=== PATIENT | female | born 1950 | race African-American/Black ===

== ENCOUNTER 2017-09-18 14:40 | Outpatient (CLI) ==
--- NOTE | 2017-09-18 15:21 | DI ---
Exam: Three x-rays of the right shoulder. Comparison: Two-view of the chest performed 01/07/2016. Reason for exam: Right shoulder pain. FINDINGS: No acute fracture or malalignment. The humeral head articulates to the bony glenoid. The clavicle is intact. The scapular Y-view appears grossly unremarkable. The right hemithorax appears unremarkable. Impression: No acute fracture or dislocation is seen in the right shoulder.
--- NOTE | 2017-09-18 15:22 | DI ---
Exam: Four x-rays of the right knee. Comparison: None available. Reason for exam: Right knee pain. FINDINGS: No acute fracture or dislocation. The joint spaces. There is tricompartmental arthrosis with medial joint space narrowing. No unexplained calcific soft tissue density or radiopaque retaine d foreign body. No large effusion. Impression: No acute fracture or malalignment in the right knee with moderate degenerative disease
== END 2017-09-18 14:41 | disposition home or self-care (01) ==
LOC: RAD 14:40
PROVIDERS: ATTEND Internal Medicine
DX: M25.561 Pain in right knee (principal); M25.511 Pain in right shoulder

== ENCOUNTER 2018-02-01 10:00 | Outpatient (RCR) ==
--- NOTE | 2018-01-26 15:29 | RS.OPPTEV2 ---
Date of Note: 01/25/18 Visit #: 1 Date of Evaluation: 01/25/18 Payer Source: MEDICARE Surgery Performed?: No Treatment Diagnosis: Low back pain, sciatica History of Condition/Mechanism of Injury:: pt reports that she has had long hx of low back pain and has been flared up lately due to working hard at her home and then sitting at [employer] with her brother. Prior Level of Function.....Patient was independent with: ADL's, Self Care, Caregiving, Ambulation/Mobility, Community Integration/Access Functional Limitations: ADL's (up and down stairs to do laundry), Reaching, Pushing, Pulling, Lifting, Carrying, Standing, Bending, Squatting, Ambulation, Community Access/Integration Current Subjective/complaints:: pt states that her pain is some what better since had taken steroids. Treatment Side (optional): N/A *Precautions: n/a Medical History Medical History: Arthritis, Cancer Medical History Comments:: Breast CA, Surgical History: Lumbar Spine, Cholecystectomy, Hysterectomy Surgical History Comments:: lumbar fusion 2008 Smoking Status: Never smoker Hx Home Medications: arthrotec, clarinex, letrozole, montelukast, omeprazole, pyridoxine, simvastatin, pentoxifylline, azelastine, lexapro, calcium, multivitamin, vit D, fish oil Patient's Goals: decrease pain and resume normal daily activities. Pain Assessment - Pain Description Pain Location: lumbar spine radiating into LLE Pain Description: Burning, Sharp, Aching Pain Description: 4-5/10 Worst Pain Intensity: 7 Functional Outcome Measure UE Functional Index: 13 (26%) - G Codes & Severity Modifier G Codes & Modifier: mobility current CJ. mobility goal CI Source of G Code score: oswestry scale Observation - Observation Inspection: pt with hamstring tightness L worse than R. Posture: Forward Head, Rounded Shoulders, Increased Thoracic Kyphosis, Decreased Lumbar Lordosis Handedness: Right Gait - Gait Pattern General Gait Pattern Observation: No Deviations/Normal Gait Comments: pt amb without AD with no LOB General Range of Motion: BUE WFL's. BLE WFL's Muscle Strength: BUE grossly 4+/5. LLE hip flex 4-/5, knee flex/ext 4/5, ankle df/PF 4/5. RLE hip flex 4+/5, knee flex/ext 4+/5, ankle DF/PF 5/5 - ROM Lumbar Flexion: Hand reach to Mid-Shins Sidebending to Left: Reach to Lateral Joint Line Sidebending to Right: Reach to Lateral Joint Line Lumbar Spine ROM Limitations: Soft Tissue Tightness, Muscle Weakness, Pain Comments: pt with pain with side bending to R, pain radiates into LLE. pt with decreased radicular pain with prone lying. - Special Tests PRAVEEN Test: Negative Left, Negative Right SLR Test: Negative Left, Negative Right Seated Dural Stretch Test: Negative Right, Positive Left Palpation Palpation Findings: Trigger Point Comments:: trigger points noted in L SI Sensation - Sensation Right Upper Extremity: Intact/Normal Left Upper Extremity: Intact/Normal Right Lower Extremity: Intact/Normal Left Lower Extremity: Impaired (n/t LLE) Balance - Sitting Balance Static Sitting Balance: Normal Dynamic Sitting Balance: Normal - Standing Balance Static Standing Balance: Normal Dynamic Standing Balance: Normal - Heat/Cryotherapy Treatment: Cryotherapy Comments:: lumbar area Interventions - Exercise/Activities/Manual Therapy Exercises/Activities: pt performed hamstring stretch, resisted hip flex, isometric hip add, and prone lying x 2 mins with decreased radicular symptoms with prone lying. Manual Therapy: NA HOME EXERCISE PROGRAM: pt given written HEP including: hamstring stretch, resisted hip flex, isometric hip add, prone lying. - Charges Timed Code Treatment Minutes: 50 Total Treatment Time: 62 Procedures billed for this date of service:: eval low, CP EVALUATION COMPLEXITY LEVEL EVALUATION COMPLEXITY LEVEL: HISTORY: Low (OA, breast CA, ), EXAM OF BODY SYSTEMS: Medium (pain, strength, balance), CLINICAL PRESENTATION: Low (stable), CLINICAL DECISION MAKING: Low Assessment Assessment: pt presents with low back pain radiating into LLE with decreased strength, and muscle tightness, with decreased lumbar ROM. 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 Goal to be met by: 03/08/18 Goal #4: pt with less than 26% impaired per oswestry scale Goal to be met by: 03/08/18 Plan - Treatment to be Provided Procedures: Therapeutic Exercises, Therapeutic Activity, Manual Therapy, Massage , Patient Education Modalities: Class IV Laser, Cryotherapy, Hot Packs - Treatment Plan Frequency: 2-3 X week Duration: 6 weeks ORDER # VISITS AND/OR THROUGH DATE: 03/08/18 - Treatment Code (1) Lumbar pain Code(s): M54.5 - LOW BACK PAIN (2) Muscle weakness (generalized) Code(s): M62.81 - MUSCLE WEAKNESS (GENERALIZED) (3) Sciatica Code(s): M54.30 - SCIATICA, UNSPECIFIED SIDE Qualifiers: Laterality: left Qualified Code(s): M54.32 - Sciatica, left side
--- NOTE | 2018-01-29 09:54 | RS.OPPTDN ---
Subjective Date of Note: 01/27/18 Visit #: 2 Date of Evaluation: 01/25/18 Payer Source: MEDICARE Treatment Diagnosis: Low back pain, sciatica Current Subjective/complaints:: Patient pleasant,reports the pain is in the lumbar and L hip .No L LE pain at this time. *Precautions: n/a Pain Assessment - Pain Description Pain Location: Lumbar and L hip. Pain Description: Dull, Aching Current Pain Intensity: 2-3 - Heat/Cryotherapy Treatment: Hot Pack (20 mins. to low back prior to exercises) Interventions - Exercise/Activities/Manual Therapy Exercises/Activities: 25 mins. ther. ex. of pelvic tilts,SKTC,DKTC,90/90 hamstring stretches , hooklying trunk rotation,piriformis stretches.HEP review for these exercises ,plus exercises given at evaluation by PT , including resisted hip flexion ,prone positioning,pillow squeeze for isometric hip adduction. Total minutes of Exercise: 25 Manual Therapy: NA Total minutes of Manual Therapy: 0 HOME EXERCISE PROGRAM: pt given written HEP including: hamstring stretch, resisted hip flex, isometric hip add, prone lying. - Charges Timed Code Treatment Minutes: 25 Total Treatment Time: 45 Procedures billed for this date of service:: hp,ex 2 Assessment: Patient tolerates exercises well,has report fo muscle cramps in the upper thighs with hip flexion at end ROM (doing SKTC).She has moderate hamstring tightness ,but responds well to stretches today.She has slight L hip / lumbar discomfort with trunk rotation in hooklying . Patient Education: Education of diagnosis, Body/Joint mechanics, Home Exercise Program, Home Safety, Activity Modification, Education of Plan of Care Patient demonstrates compliance with HEP?: Yes Short Term Goals Goal #1: pt independent with initial HEP Goal to be met by: 02/15/18 Progress towards Goal:: Progressing Goal #2: pt rate pain <4/10 with activity Goal to be met by: 02/15/18 Progress towards Goal:: Progressing Goal #3: pt with decreased hamstring tightness equal BLE Goal to be met by: 02/15/18 Progress towards Goal:: Progressing Goal #4: Increase strength LLE 4/5 Goal to be met by: 02/15/18 Fdc Goals Goal #1: pt demonstrate understanding of HEP to continue at home Goal to be met by: 03/08/18 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 Goal to be met by: 03/08/18 Goal #4: pt with less than 26% impaired per oswestry scale Goal to be met by: 03/08/18 Plan PLAN OF CARE EXPIRES ON:: 03/08/18 ORDER # VISITS AND/OR THROUGH DATE: 03/08/18 PLAN: Continue PT to reduce back pain ,improve lumbar flexibility.
--- NOTE | 2018-01-29 11:00 | RS.OPPTDN ---
Subjective Date of Note: 01/29/18 Visit #: 3 Date of Evaluation: 01/25/18 Payer Source: MEDICARE Treatment Diagnosis: Low back pain, sciatica Current Subjective/complaints:: Patient reports soreness today due to being busy at home ,cleanng out closets,etc.She has intermittet pain into the L hip. *Precautions: n/a Pain Assessment - Pain Description Pain Location: lumbar and L hip area Pain Description: Radiating, Aching Current Pain Intensity: 2-3 /10 Other Comments regarding Pain:: occasionally radiates into the l leg - Heat/Cryotherapy Treatment: Hot Pack (20 mins. prior to exercises) Interventions - Exercise/Activities/Manual Therapy Exercises/Activities: 25 mins. ther. ex. of pelvic tilts,SKTC,DKTC,90/90 hamstring stretches , hooklying trunk rotation,piriformis stretches.HEP review for these exercises ,plus exercises given at evaluation by PT , including resisted hip flexion ,prone positioning,pillow squeeze for isometric hip adduction. Total minutes of Exercise: 25 Manual Therapy: NA HOME EXERCISE PROGRAM: pt given written HEP including: hamstring stretch, resisted hip flex, isometric hip add, prone lying. Added SKTC,DKTC,piriformis stretch,standing trunk extension with copies given. - Charges Timed Code Treatment Minutes: 25 Total Treatment Time: 45 Procedures billed for this date of service:: hp,ex 2 Assessment: Patient progressing well ,has less intense pain ,mostly described as soreness.She has good return demo of HEP.No antalgic gait noted after PT session today. Patient Education: Education of diagnosis, Body/Joint mechanics, Home Exercise Program, Home Safety, Activity Modification, Education of Plan of Care Patient demonstrates compliance with HEP?: Yes Short Term Goals Goal #1: pt independent with initial HEP Goal to be met by: 02/15/18 Progress towards Goal:: Progressing Goal #2: pt rate pain <4/10 with activity Goal to be met by: 02/15/18 Progress towards Goal:: Progressing Goal #3: pt with decreased hamstring tightness equal BLE Goal to be met by: 02/15/18 Progress towards Goal:: Progressing Goal #4: Increase strength LLE 4/5 Goal to be met by: 02/15/18 Progress towards Goal:: Progressing General Labor Goals Goal #1: pt demonstrate understanding of HEP to continue at home Goal to be met by: 03/08/18 Progress towards goal: Progressing 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 Goal to be met by: 03/08/18 Goal #4: pt with less than 26% impaired per oswestry scale Goal to be met by: 03/08/18 Plan PLAN OF CARE EXPIRES ON:: 03/08/18 ORDER # VISITS AND/OR THROUGH DATE: 03/08/18 PLAN: Cont . PT to eliminate back pain ,educate patient for joint protection, body mechanics.
--- NOTE | 2018-02-01 11:18 | RS.OPPTDN ---
Subjective Date of Note: 02/01/18 Visit #: 4 Date of Evaluation: 01/25/18 Payer Source: MEDICARE Treatment Diagnosis: Low back pain, sciatica Current Subjective/complaints:: Patient reports mostly stiffness in the low back today,no pain currently. *Precautions: n/a Pain Assessment - Pain Description Pain Location: lumbar pain Pain Description: stiffness - Heat/Cryotherapy Treatment: Hot Pack (20 mins. prior to exercises) Interventions - Exercise/Activities/Manual Therapy Exercises/Activities: 35 mins. ther. ex. of pelvic tilts,SKTC,DKTC,90/90 hamstring stretches , hooklying trunk rotation,piriformis stretches.HEP review for these exercises ,added yellow theraband exercises of postural pullbacks in standing . Total minutes of Exercise: 35 Manual Therapy: NA Total minutes of Manual Therapy: 0 HOME EXERCISE PROGRAM: pt given written HEP including: hamstring stretch, resisted hip flex, isometric hip add, prone lying.SKTC,DKTC,piriformis stretch, standing trunk extension with copies given.Today we added yellow theraband exercises of postural pullbacks. - Charges Timed Code Treatment Minutes: 35 Total Treatment Time: 55 Procedures billed for this date of service:: hp,ex 2 Assessment: Patient progressing well,reports less L hip discomfort with stretches today.No antalgic gait noted today.She reports slight L lumbar discomfort after standing theraband exercises.Instructed to avoid heavy resistive activity .She has good safety awareness and her limitations with certain ADL's. Patient Education: Education of diagnosis, Body/Joint mechanics, Home Exercise Program, Home Safety, Activity Modification, Education of Plan of Care Patient demonstrates compliance with HEP?: Yes Short Term Goals Goal #1: pt independent with initial HEP Goal to be met by: 02/15/18 Progress towards Goal:: Partially Met Goal #2: pt rate pain <4/10 with activity Goal to be met by: 02/15/18 Progress towards Goal:: Partially Met Goal #3: pt with decreased hamstring tightness equal BLE Goal to be met by: 02/15/18 Progress towards Goal:: Partially Met Goal #4: Increase strength LLE 4/5 Goal to be met by: 02/15/18 Progress towards Goal:: Progressing Alf Goals Goal #1: pt demonstrate understanding of HEP to continue at home Goal to be met by: 03/08/18 Progress towards goal: Progressing Goal #2: 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 Goal to be met by: 03/08/18 Progress towards goal: Progressing Goal #4: pt with less than 26% impaired per oswestry scale Goal to be met by: 03/08/18 Plan PLAN OF CARE EXPIRES ON:: 03/08/18 ORDER # VISITS AND/OR THROUGH DATE: 03/08/18 PLAN: Continue skilled PT to eliminate LBP,return patient to PLOF.
== END 2018-02-01 23:59 ==
PROVIDERS: ATTEND Internal Medicine
DX: M54.42 Lumbago with sciatica, left side (principal)

== ENCOUNTER 2018-02-22 10:00 | Outpatient (RCR) ==
--- NOTE | 2018-02-05 11:08 | RS.OPPTDN ---
Subjective Date of Note: 02/05/18 Visit #: 5 Date of Evaluation: 01/25/18 Payer Source: MEDICARE Treatment Diagnosis: Low back pain, sciatica Current Subjective/complaints:: Reports going to aquatics exercise program recently.She feels the PT is helping her. *Precautions: n/a Pain Assessment - Pain Description Pain Location: lumbar Pain Description: minimal ,more on L side of low back Current Pain Intensity: not rated - Heat/Cryotherapy Treatment: Hot Pack (20 mins. prior to exercises) Interventions - Exercise/Activities/Manual Therapy Exercises/Activities: 30 mins. ther. ex. of pelvic tilts,SKTC,DKTC,90/90 hamstring stretches , hooklying trunk rotation,piriformis stretches.Patient did 10 reps of SLR on L with out back pain .HEP review for these exercises .Ended session with SI muscle energy tehnique of resisted knee extension in hooklying. Total minutes of Exercise: 30 Manual Therapy: NA Total minutes of Manual Therapy: 0 HOME EXERCISE PROGRAM: pt given written HEP including: hamstring stretch, resisted hip flex, isometric hip add, prone lying.SKTC,DKTC,piriformis stretch, standing trunk extension with copies given. - Charges Timed Code Treatment Minutes: 30 Total Treatment Time: 50 Procedures billed for this date of service:: hp,ex 2 Assessment: Progressing well toward all rehab goals,has equal hamstring extensibility today,has negative SLR test today on the L LE.She has good understanding of pain control if back pain elevates.She reports tolerating being on her feet for longer duration now. Patient Education: Education of diagnosis, Body/Joint mechanics, Home Exercise Program, Home Safety, Activity Modification, Education of Plan of Care Patient demonstrates compliance with HEP?: Yes Short Term Goals Goal #1: pt independent with initial HEP Goal to be met by: 02/15/18 Progress towards Goal:: Partially Met Goal #2: pt rate pain <4/10 with activity Goal to be met by: 02/15/18 Progress towards Goal:: Partially Met Goal #3: pt with decreased hamstring tightness equal BLE Goal to be met by: 02/15/18 Progress towards Goal:: Met Goal #4: Increase strength LLE 4/5 Goal to be met by: 02/15/18 Progress towards Goal:: Partially Met Flight Steward Goals Goal #1: pt demonstrate understanding of HEP to continue at home Goal to be met by: 03/08/18 Progress towards goal: Progressing Goal #2: 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 Goal to be met by: 03/08/18 Progress towards goal: Progressing Goal #4: pt with less than 26% impaired per oswestry scale Goal to be met by: 03/08/18 Plan PLAN OF CARE EXPIRES ON:: 03/08/18 ORDER # VISITS AND/OR THROUGH DATE: 03/08/18 PLAN: Cont. PT to eliminate back pain ,return to PLOF.
--- NOTE | 2018-02-09 11:10 | RS.OPPTDN ---
Subjective Date of Note: 02/09/18 Visit #: 6 Date of Evaluation: 01/25/18 Payer Source: MEDICARE Treatment Diagnosis: Low back pain, sciatica Current Subjective/complaints:: Reports feeling better,has occasional , "twinge " of pain in the back.She is very active , reports not trying to vacuum her home yet. *Precautions: n/a Pain Assessment - Pain Description Pain Description: Dull Pain Description: twinge of pain intermittently Current Pain Intensity: 1 - Heat/Cryotherapy Treatment: Hot Pack (20 mins. prior to exercises) Interventions - Exercise/Activities/Manual Therapy Exercises/Activities: 30 mins. instruction in alternate UE/LE seated on therapy ball,then standing ,then standing using therapy ball against abdomen while attempting UE/LE extension. R side-lying doing "clam shell " motion,then side lying L hip abduction. Total minutes of Exercise: 30 Manual Therapy: NA Total minutes of Manual Therapy: 0 HOME EXERCISE PROGRAM: pt given written HEP including: hamstring stretch, resisted hip flex, isometric hip add, prone lying.SKTC,DKTC,piriformis stretch, standing trunk extension with copies given. - Charges Timed Code Treatment Minutes: 30 Total Treatment Time: 50 Procedures billed for this date of service:: hp,ex 2 Assessment: Patient progressing well toward all goals ,as her intensity of back pain is lessening with daily activities.She has good understanding of HEP, better postural awareness,especially when fatigued.Her pain is not radiating into the L LE today.She has L LE hip abductor weakness noted with brief single leg stance,but understands the exercise to improve this. Patient Education: Body/Joint mechanics, Education of Plan of Care Patient demonstrates compliance with HEP?: Yes Short Term Goals Goal #1: pt independent with initial HEP Goal to be met by: 02/15/18 Progress towards Goal:: Met Goal #2: pt rate pain <4/10 with activity Goal to be met by: 02/15/18 Progress towards Goal:: Partially Met Goal #3: pt with decreased hamstring tightness equal BLE Goal to be met by: 02/15/18 Progress towards Goal:: Met Goal #4: Increase strength LLE 4/5 Goal to be met by: 02/15/18 Progress towards Goal:: Partially Met Long-Term Goals Goal #1: pt demonstrate understanding of HEP to continue at home Goal to be met by: 03/08/18 Progress towards goal: Partially Met Goal #2: 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 Goal to be met by: 03/08/18 Progress towards goal: Partially Met Goal #4: pt with less than 26% impaired per oswestry scale Goal to be met by: 03/08/18 Plan PLAN OF CARE EXPIRES ON:: 03/08/18 ORDER # VISITS AND/OR THROUGH DATE: 03/08/18 PLAN: Continue PT to decrease or eliminate back pain ,return to PLOF.
--- NOTE | 2018-02-12 11:18 | RS.OPPTDN ---
Subjective Date of Note: 02/12/18 Visit #: 7 Date of Evaluation: 01/25/18 Payer Source: MEDICARE Treatment Diagnosis: Low back pain, sciatica Current Subjective/complaints:: Patient reports the L mid back is sore today.She continues to be compliant to her exercise program ,and very active on a daily basis. *Precautions: n/a Pain Assessment - Pain Description Pain Location: lumbar and L mid back Pain Description: Dull Current Pain Intensity: not rated - Heat/Cryotherapy Treatment: Hot Pack (20 mins. prior to exercises) Interventions - Exercise/Activities/Manual Therapy Exercises/Activities: 30 mins. total,including SI muscle energy techniques fo resisted hip flexion ,combined with resisted knee extension in hooklying position.Isometric hip abd/add. ,gluteal sets,LE PNF to check L back pain .Gentle distraction at end of session. Total minutes of Exercise: 30 Manual Therapy: NA Total minutes of Manual Therapy: 0 HOME EXERCISE PROGRAM: pt given written HEP including: hamstring stretch, resisted hip flex, isometric hip add, prone lying.SKTC,DKTC,piriformis stretch, standing trunk extension with copies given. - Charges Timed Code Treatment Minutes: 30 Total Treatment Time: 50 Procedures billed for this date of service:: hp,ex 2 Assessment: Patient tolerates stretches well.She does reports dull ache in the L hip as she fatigues,was initially elevated on the L pelvic girdle ,but was symmetrical after muscle energy done. Patient Education: Body/Joint mechanics, Home Exercise Program, Home Safety, Activity Modification, Education of Plan of Care Patient demonstrates compliance with HEP?: Yes Short Term Goals Goal #1: pt independent with initial HEP Goal to be met by: 02/15/18 Progress towards Goal:: Met Goal #2: pt rate pain <4/10 with activity Goal to be met by: 02/15/18 Progress towards Goal:: Partially Met Goal #3: pt with decreased hamstring tightness equal BLE Goal to be met by: 02/15/18 Progress towards Goal:: Met Goal #4: Increase strength LLE 4/5 Goal to be met by: 02/15/18 Progress towards Goal:: Partially Met Station Attendant Goals Goal #1: pt demonstrate understanding of HEP to continue at home Goal to be met by: 03/08/18 Progress towards goal: Partially Met Goal #2: 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 Goal to be met by: 03/08/18 Progress towards goal: Partially Met Goal #4: pt with less than 26% impaired per oswestry scale Goal to be met by: 03/08/18 Plan PLAN OF CARE EXPIRES ON:: 03/08/18 ORDER # VISITS AND/OR THROUGH DATE: 03/08/18 PLAN: Cont PT to eliminate LBP,return to PLOF.
--- NOTE | 2018-02-17 11:16 | RS.OPPTDN ---
Subjective Date of Note: 02/17/18 Visit #: 8 Date of Evaluation: 01/25/18 Payer Source: MEDICARE Treatment Diagnosis: Low back pain, sciatica Current Subjective/complaints:: Reports doing well,has occasional 'twinge" in the L mid back ,today when getting out of her car. *Precautions: n/a Pain Assessment - Pain Description Pain Location: back Pain Description: intermittent Current Pain Intensity: 2-3 - Heat/Cryotherapy Treatment: Hot Pack (20 mins. prior to exercises) Interventions - Exercise/Activities/Manual Therapy Exercises/Activities: 30 mins. total,including SI muscle energy technique of resisted hip flexion , then isometrics for hip abd/adduction ,SKTC,DKTC,SLR test (-) ,LTR in hooklying ,AROM of alternating hip flexion x 15 reps.Ended session with bilateral piriformis stretches. Total minutes of Exercise: 30 Manual Therapy: NA Total minutes of Manual Therapy: 0 HOME EXERCISE PROGRAM: pt given written HEP including: hamstring stretch, resisted hip flex, isometric hip add, prone lying.SKTC,DKTC,piriformis stretch, standing trunk extension with copies given. - Charges Timed Code Treatment Minutes: 30 Total Treatment Time: 50 Procedures billed for this date of service:: hp,ex 2 Assessment: Progressing well toward all goasl.She has much improved awareness of body mechanics for more strenuous activities.She rports stretch discomfort at end range ,but no elevated back pain today with activities.She continues to be highly active and motivated.We discussed beginning D/C plan ,tenttively for next week due to good progress. 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 Goal to be met by: 03/08/18 Progress towards goal: Partially Met Goal #4: pt with less than 26% impaired per oswestry scale Goal to be met by: 03/08/18 (To be assessed next visit.) Plan PLAN OF CARE EXPIRES ON:: 03/08/18 ORDER # VISITS AND/OR THROUGH DATE: 03/08/18 PLAN: Continue PT to eliminate or reduce back pain ,return to highest LOF.
--- NOTE | 2018-02-22 11:24 | RS.OPPTDN ---
Subjective Date of Note: 02/22/18 Visit #: 9 Date of Evaluation: 01/25/18 Payer Source: MEDICARE Treatment Diagnosis: Low back pain, sciatica Current Subjective/complaints:: Patient pleased with her progress,reports feling much better.She is doing her HEP and is returning to [facility] [employer] exercise program twice a week.She agrees with D/C plan today. *Precautions: n/a Pain Assessment - Pain Description Pain Location: L lumbar / hip Pain Description: occasional twinge Current Pain Intensity: 0 Worst Pain Intensity: 2-3 Other Comments regarding Pain:: Reports her pain does not generally interfere with her daily plans . - Heat/Cryotherapy Treatment: Hot Pack (20 misn. prior to exercises) Interventions - Exercise/Activities/Manual Therapy Exercises/Activities: 35 mins. total,including pelvic tilts ,SI muscle energy technique of resisted hip flexion , then isometrics for hip abd/adduction ,SKTC, DKTC,LTR in hooklying ,90/90 hamstring stretches.Added abdominal crunch , ( given a copy ) Total minutes of Exercise: 35 Manual Therapy: NA Total minutes of Manual Therapy: 0 HOME EXERCISE PROGRAM: pt given written HEP including: hamstring stretch, resisted hip flex, isometric hip add, prone lying.SKTC,DKTC,piriformis stretch, standing trunk extension with copies given. - Charges Timed Code Treatment Minutes: 35 Total Treatment Time: 55 Procedures billed for this date of service:: hp,ex 2 Assessment: Partient progresed well,met STG's and LTG's.Her pain is now less intense,less frequent,and decreased duration when she does have pain.She has good return demo and understanding of HEP. 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 Goal to be met by: 03/08/18 Progress towards goal: Met Goal #4: pt with less than 26% impaired per oswestry scale Goal to be met by: 03/08/18 (22%) Progress towards goal: Met Plan PLAN OF CARE EXPIRES ON:: 03/08/18 ORDER # VISITS AND/OR THROUGH DATE: 03/08/18 PLAN: D/C.
--- NOTE | 2018-02-22 13:14 | RS.OPPTDC ---
Date of Discharge: 02/22/18 Date of Evaluation: 01/25/18 Number of Visits: 9 Treatment Diagnosis: Low back pain, sciatica Current Level of Function: pt presents with improved strength 4+ to 5-/5 strength, Lumbar and LE ROM WFL's. pt presents with good posture, normal gait pattern. Current Complaints/Gains: pt states she is pleased with her progress. She is planning on continuing water exercises 2 x per week. Functional Outcome Measure Oswestry LBP: 11 (22%) - G Codes & Severity Modifier G Codes & Modifier: mobility goal CI. mobility d/c CJ Source of G Code score: oswestry LBP Observation - Observation Posture: Forward Head, Rounded Shoulders, Increased Thoracic Kyphosis, Decreased Lumbar Lordosis General Range of Motion: lumbar and LE ROM WFL's Muscle Strength: 4+ to 5-/5 strength Interventions - Exercise/Activities/Manual Therapy Exercises/Activities: n/a Manual Therapy: NA HOME EXERCISE PROGRAM: pt given written HEP including: hamstring stretch, resisted hip flex, isometric hip add, prone lying.SKTC,DKTC,piriformis stretch, standing trunk extension with copies given. - Charges Timed Code Treatment Minutes: n/a Total Treatment Time: n/a Procedures billed for this date of service:: n/a Assessment Assessment: pt has met all goals. pt has made significant progress with amb, transfers as well as strength and ROM. 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 Goal to be met by: 03/08/18 Progress towards goal: Met Goal #4: pt with less than 26% impaired per oswestry scale Goal to be met by: 03/08/18 (22%) Progress towards goal: Met Plan Reason for Discharge:: All Goals Met
== END 2018-03-04 23:59 ==
PROVIDERS: ATTEND Internal Medicine
DX: M54.42 Lumbago with sciatica, left side (principal)

== ENCOUNTER 2018-04-27 13:56 | Outpatient (CLI) ==
--- NOTE | 2018-04-28 08:43 | CT ---
EXAM: CT lumbar spine without contrast HISTORY: Back pain COMPARISON: None TECHNIQUE: CT lumbar spine performed without intravenous contrast. Coronal and sagittal reformatted images obtained. FINDINGS: The patient status post posterior spinal fusion L4-L5-S1. Hardware appears intact. Inter body spacers L4-L5 and L5-S1. Multilevel marginal osteophyte formation. Severe intervertebral space narrowing at T11-T12, L2-L3, and L3-L4. Multilevel facet arthrosis. Trace retrolisthesis of L2 on L3 and L3 on L4. Sacroiliac joints intact with mild degenerative change. Colonic diverticulosis. S everal small right renal calculi measuring 1 - 2 mm. T11-T12: Posterior disc osteophyte complex and facet arthrosis causing moderate to severe bilateral neural foraminal narrowing. T12-L1: No central canal or neural foraminal narrowing. L1-L2: Posterior disc osteophyte complex causing very mild central canal narrowing. L2-L3: Posterior disc osteophyte complex and facet arthrosis causing mild to moderate central canal and severe bilateral neural foraminal narrowing. L3-L4: Posterior disc osteophyte complex and facet arthrosis causing moderate central canal and sever e bilateral neural foraminal narrowing. L4-L5: Postoperative changes. Central canal obscured secondary to streak artifact without definitiv e central canal or neural foraminal narrowing. L5-S1: Postoperative changes. Central canal obscured secondary to streak artifact without definitiv e central canal or neural foraminal narrowing. IMPRESSION: 1. Posterior spinal fusion L4-L5-S1. Hardware appears intact. No fracture. 2. Chronic discogenic degenerative disease and facet arthrosis. Please see segmental analysis, noti ng central canal and neural foraminal narrowing. Right nephrolithiasis.
== END 2018-04-27 13:57 | disposition home or self-care (01) ==
LOC: RAD 13:56
PROVIDERS: ATTEND Internal Medicine
DX: M54.9 Dorsalgia, unspecified (principal)

== ENCOUNTER 2018-07-01 14:00 | Outpatient (RCR) ==
--- NOTE | 2018-06-16 10:59 | RS.OPPTEV2 ---
Date of Note: 06/15/18 Visit #: 1 Date of Evaluation: 06/15/18 Payer Source: MEDICARE Surgery Performed?: No Treatment Diagnosis: Low back pain History of Condition/Mechanism of Injury:: Patient has had a history of low back pain. She had surgery to the lumbar spine in 2008. She had a flare up earlier this year and did well with therapy. She has had an aggrevation of her low back pain again recently, as well as left lower thoracic pain. States this increased pain may be from working around her house. Prior Level of Function.....Patient was independent with: ADL's, Self Care, Caregiving, Ambulation/Mobility, Community Integration/Access Functional Limitations: ADL's (up and down stairs to do laundry), Reaching, Pushing, Pulling, Lifting, Carrying, Standing, Bending, Squatting, Ambulation, Community Access/Integration Current Subjective/complaints:: Ms. Roach reports pain in the left low back, mid back, and into left abdomen. States her pain is worse with laying down. She denies any radiating pain into the LE's. States she has some numbness in her feet since her back surgery. States most of her pain has been on the left side. States she was initially having problems sleeping, but she is doing better now. She performs some stretching in the mornings before she gets out of bed. She has not been able to continue with her water aerobics classes because the pool is closed for repairs. Reports pain with lifting and with prolonged standing. Treatment Side (optional): N/A *Precautions: n/a Medical History Medical History: Arthritis, Cancer Medical History Comments:: Breast CA 2016 Surgical History: Lumbar Spine, Cholecystectomy, Hysterectomy Surgical History Comments:: lumbar fusion 2008 Smoking Status: Never smoker Hx Home Medications: arthrotec, clarinex, letrozole, montelukast, omeprazole, pyridoxine, simvastatin, pentoxifylline, azelastine, calcium, multivitamin, vit D, fish oil. She also has Hydrocodone, but has not taken it in a long time. Patient's Goals: Her goal is to get relief of back pain. Pain Assessment - Pain Description Pain Location: low back and left middle-low back Current Pain Intensity: not quantifed Worst Pain Intensity: not quantified Functional Outcome Measure Oswestry LBP: 30 - G Codes & Severity Modifier G Codes & Modifier: Mob current CJ. Mob goal CI Source of G Code score: Oswestry LBP scale Observation - Observation Posture: Forward Head, Rounded Shoulders, Decreased Lumbar Lordosis Gait - Gait Pattern Gait Comments: Patient ambulates with a slight flexed posture. She ambulates independently without an assistive device. - ROM Lumbar Flexion: Hand reach to patellae Sidebending to Left: Reach to Lateral Joint Line Sidebending to Right: Reach to Lateral Joint Line Comments: Patient demonstrates minimal flexion at the lumbar spine, most mobility is at the hips. Patient reports discomfort and "pulling" in the left mid back with right side bending. - Strength Comments: Trunk strength 4-/5. LE strength 4+/5. - Special Tests PRAVEEN Test: Negative Left, Negative Right SLR Test: Negative Left, Negative Right Seated Dural Stretch Test: Negative Left, Negative Right SI Joint Compression: Negative Palpation Comments:: Patient demonstrates moderate increased muscle tone along the left lower thoracic and lumbar paraspinals. She reports tenderness at the Left lumbosacral region and SI. Sensation - Sensation Comments: Patient reports numbness in the left foot and toes of the right foot. States she has had this since 2009 back surgery. All else of LE sensation is intact. Additional Comments: Additional Comments: SLR bilaterally 60+ degrees in supine. Interventions - Exercise/Activities/Manual Therapy Exercises/Activities: Patient instructed in lower trunk rotation and sidebending to stretch the muscles along the left side of the thoracic and lumbar spine. Manual Therapy: NA HOME EXERCISE PROGRAM: lower trunk rotation and sidebending to stretch the muscles along the left side - Charges Timed Code Treatment Minutes: 0 mins Total Treatment Time: 42 mins Procedures billed for this date of service:: EVAL Medium EVALUATION COMPLEXITY LEVEL EVALUATION COMPLEXITY LEVEL: HISTORY: Medium (Hx of back pain w/ lumbar fusion 2009, Breast Cancer), EXAM OF BODY SYSTEMS: Medium, CLINICAL PRESENTATION: Medium, CLINICAL DECISION MAKING: Medium Assessment Assessment: Patient presents to therapy with a diagnosis of Low back pain. She reports an aggrevation of pain in the low back and along the left side of the lower thoracic spine. She reports difficulty tolerating prolonged standing due to pain. She demonstrates notable muscle guarding along the left thoracolumbar region and tenderness in this region, as well as in the left lumbosacral and SI region. She demonstrates potential to benefit from stretching and progressed spinals stability exercises to reduce muscle tone and pain. Patient Education: Education of diagnosis, Body/Joint mechanics, Home Exercise Program, Activity Modification, Education of Plan of Care Rehab Potential: Good Short Term Goals Goal #1: Pt independent and compliant with HEP. Goal to be met by: 06/29/18 Goal #2: Muscle tone in left thoracolumbar region decreased to minimal. Goal to be met by: 06/29/18 Goal #3: Pt to report minimal tenderness at lumbosacral region. Goal to be met by: 06/29/18 Goal #4: . Usp Goals Goal #1: Pt knows HEP and to continue ex's to maintain functional level at D/C. Goal to be met by: 07/30/18 Goal #2: Score on Oswestry LBP scale improved to 19% or less impairment. Goal to be met by: 07/30/18 Goal #3: Pt able to stand as needed with only minimal back pain. Goal to be met by: 07/30/18 Goal #4: Pt able to perform household activities with minimal to no back pain. Goal to be met by: 07/30/18 Plan - Treatment to be Provided Procedures: Therapeutic Exercises, Therapeutic Activity, Manual Therapy, Patient Education Modalities: Cryotherapy, Hot Packs - Treatment Plan Frequency: 2 X week Duration: 6 weeks ORDER # VISITS AND/OR THROUGH DATE: 07/30/18 - Treatment Code (1) Low back pain Code(s): M54.5 - LOW BACK PAIN Qualifiers: Chronicity: unspecified Back pain laterality: unspecified Sciatica presence: unspecified whether sciatica present Qualified Code(s): M54.5 - Low back pain
--- NOTE | 2018-06-17 15:30 | RS.OPPTDN ---
Subjective Date of Note: 06/17/18 Visit #: 2 Date of Evaluation: 06/15/18 Payer Source: MEDICARE Treatment Diagnosis: Low back pain Current Subjective/complaints:: Patient reports the therapy always seems to help her.She is compliant to doing her exercises at home. *Precautions: n/a Pain Assessment - Pain Description Pain Location: L lumbar and L mid-back Pain Description: Dull, Aching Current Pain Intensity: 3 - Heat/Cryotherapy Treatment: Hot Pack (20 mins. prior to eercises) Interventions - Exercise/Activities/Manual Therapy Exercises/Activities: 30 mins. ,SKTC,DKTC,piriformis stretches,LTR ,side- bending to R in standing.Also instructed in R sidelying with pillow or towel roll under the trunk to assist with stretch of L side of trunk. Total minutes of Exercise: 30 Manual Therapy: NA Total minutes of Manual Therapy: 0 HOME EXERCISE PROGRAM: lower trunk rotation and sidebending to stretch the muscles along the left side - Charges Timed Code Treatment Minutes: 30 Total Treatment Time: 50 Procedures billed for this date of service:: hp,ex 2 Assessment: Patient has increased discomfort in the L mid-back after standing and side-bending to the R ,but no sharp pain .She has good hamstring extensibility. In static standing ,she has trunk to L,corrects with tactile and verbal cues given. Patient Education: Education of diagnosis, Body/Joint mechanics, Home Exercise Program, Home Safety, Activity Modification, Education of Plan of Care Patient demonstrates compliance with HEP?: Yes Short Term Goals Goal #1: Pt independent and compliant with HEP. Goal to be met by: 06/29/18 Progress towards Goal:: Progressing Goal #2: Muscle tone in left thoracolumbar region decreased to minimal. Goal to be met by: 06/29/18 Goal #3: Pt to report minimal tenderness at lumbosacral region. Goal to be met by: 06/29/18 Goal #4: . Detention Goals Goal #1: Pt knows HEP and to continue ex's to maintain functional level at D/C. Goal to be met by: 07/30/18 Progress towards goal: Progressing Goal #2: Score on Oswestry LBP scale improved to 19% or less impairment. Goal to be met by: 07/30/18 Goal #3: Pt able to stand as needed with only minimal back pain. Goal to be met by: 07/30/18 Goal #4: Pt able to perform household activities with minimal to no back pain. Goal to be met by: 07/30/18 Plan PLAN OF CARE EXPIRES ON:: 07/30/18 ORDER # VISITS AND/OR THROUGH DATE: 07/30/18 PLAN: Continue PT to eliminate /reduce back pain ,instruct patient in postural awareness,utilizing stretches /strengthening.
--- NOTE | 2018-06-21 15:29 | RS.OPPTDN ---
Subjective Date of Note: 06/21/18 Visit #: 3 Date of Evaluation: 06/15/18 Payer Source: MEDICARE Treatment Diagnosis: Low back pain Current Subjective/complaints:: Patient reports minimal pain today,has tried sleeping on the R side with a small pillowunder the trunk ,feels this is helping. *Precautions: n/a Pain Assessment - Pain Description Pain Location: lumbar Pain Description: Dull Current Pain Intensity: 1 - Heat/Cryotherapy Treatment: Hot Pack (20 mins. prior to exercises) Interventions - Exercise/Activities/Manual Therapy Exercises/Activities: 30 mins. ,SKTC,DKTC,piriformis stretches,LTR ,SI muscle energy ,side-bending to R in sitting.Seated postural exercise of trunk extension.HEP review Total minutes of Exercise: 30 Manual Therapy: NA HOME EXERCISE PROGRAM: lower trunk rotation and sidebending to stretch the muscles along the left side - Charges Timed Code Treatment Minutes: 30 Total Treatment Time: 50 Procedures billed for this date of service:: hp,ex 2 Assessment: Patient reports mild cramping in the L mid back after exercises today,but no sharp pain.She continues to be tighter in the L aspect of her trunk ,as compared to the R, but this is progressing.She reports increased tightness on L also,when doing LTR to the R . Patient Education: Education of diagnosis, Body/Joint mechanics, Home Exercise Program, Home Safety, Activity Modification, Education of Plan of Care Patient demonstrates compliance with HEP?: Yes Short Term Goals Goal #1: Pt independent and compliant with HEP. Goal to be met by: 06/29/18 Progress towards Goal:: Progressing Goal #2: Muscle tone in left thoracolumbar region decreased to minimal. Goal to be met by: 06/29/18 Progress towards Goal:: Progressing Goal #3: Pt to report minimal tenderness at lumbosacral region. 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 Goal to be met by: 07/30/18 Progress towards goal: Progressing Goal #2: Score on Oswestry LBP scale improved to 19% or less impairment. Goal to be met by: 07/30/18 Goal #3: Pt able to stand as needed with only minimal back pain. Goal to be met by: 07/30/18 Progress towards goal: Progressing Goal #4: Pt able to perform household activities with minimal to no back pain. Goal to be met by: 07/30/18 Plan PLAN OF CARE EXPIRES ON:: 07/30/18 ORDER # VISITS AND/OR THROUGH DATE: 07/30/18 PLAN: Continue PT to eliminate back pain ,educate patient for core strengthening.
--- NOTE | 2018-06-23 15:11 | RS.OPPTDN ---
Subjective Date of Note: 06/23/18 Visit #: 4 Date of Evaluation: 06/15/18 Payer Source: MEDICARE Treatment Diagnosis: Low back pain Current Subjective/complaints:: Patient reports increaed aching in her back today,possibly due to rainy weather in the area. *Precautions: n/a Pain Assessment - Pain Description Pain Location: mid-back and lumbar Pain Description: Dull, Throbbing, Aching Current Pain Intensity: 4 - Heat/Cryotherapy Treatment: Hot Pack (20 mins. prior to exercises) Interventions - Exercise/Activities/Manual Therapy Exercises/Activities: 30 mins. ,SKTC,DKTC,R piriformis stretches,LTR ,side- bending to R in sitting.Standing exercise of trunk extension.. Total minutes of Exercise: 30 Manual Therapy: NA HOME EXERCISE PROGRAM: lower trunk rotation and sidebending to stretch the muscles along the left side - Charges Timed Code Treatment Minutes: 30 Total Treatment Time: 50 Procedures billed for this date of service:: hp,ex 2 Assessment: Patient reports the pain is reduced when supine ,but returns with walking after session ,but less intense.She has imcreased tightness in the ZR piriformis today,with sciatica present.She can benefit from continued stretches, modalities ,and also utilize soft tisue mobs. if needed. Patient Education: Education of diagnosis, Body/Joint mechanics, Home Exercise Program, Home Safety, Activity Modification, Education of Plan of Care Patient demonstrates compliance with HEP?: Yes Short Term Goals Goal #1: Pt independent and compliant with HEP. Goal to be met by: 06/29/18 Progress towards Goal:: Progressing Goal #2: Muscle tone in left thoracolumbar region decreased to minimal. Goal to be met by: 06/29/18 (increased guarding today) Progress towards Goal:: Regressing Goal #3: Pt to report minimal tenderness at lumbosacral region. Goal to be met by: 06/29/18 Progress towards Goal:: Progressing Goal #4: . Client Support Representative Goals Goal #1: Pt knows HEP and to continue ex's to maintain functional level at D/C. Goal to be met by: 07/30/18 Progress towards goal: Progressing Goal #2: Score on Oswestry LBP scale improved to 19% or less impairment. Goal to be met by: 07/30/18 Goal #3: Pt able to stand as needed with only minimal back pain. Goal to be met by: 07/30/18 Progress towards goal: Progressing Goal #4: Pt able to perform household activities with minimal to no back pain. Goal to be met by: 07/30/18 (elevated pain as this day progresses) Progress towards goal: Regressing Plan PLAN OF CARE EXPIRES ON:: 07/30/18 ORDER # VISITS AND/OR THROUGH DATE: 07/30/18 PLAN: Cont. PT to eliminate back pain , return to PLOF.
--- NOTE | 2018-06-28 15:04 | RS.OPPTDN ---
Subjective Date of Note: 06/28/18 Visit #: 5 Date of Evaluation: 06/15/18 Payer Source: MEDICARE Treatment Diagnosis: Low back pain Current Subjective/complaints:: Patient reports the back feels better today, able to do household tasks with less discomfort in the back. *Precautions: n/a Pain Assessment - Pain Description Pain Location: lumbar and L mid - back Pain Description: Dull Current Pain Intensity: not rated - Heat/Cryotherapy Treatment: Hot Pack (20 mins. prior to exercises) Interventions - Exercise/Activities/Manual Therapy Exercises/Activities: 30 mins. ,SKTC,DKTC, piriformis stretches,LTR ,side- bending to R sitting on therapy ball ,pelvic rocking motion on therapy ball.HEP review. Total minutes of Exercise: 30 Manual Therapy: NA Total minutes of Manual Therapy: 0 HOME EXERCISE PROGRAM: lower trunk rotation and sidebending to stretch the muscles along the left side - Charges Timed Code Treatment Minutes: 30 Total Treatment Time: 50 Procedures billed for this date of service:: hp,ex 2 Assessment: Patient has less pain doing ADL's at home,was able to vacuum without elevated pain today.The L mid-back pain is also lessening with side - bending to the R . Patient Education: Body/Joint mechanics, Home Exercise Program, Home Safety, Activity Modification, Education of Plan of Care Patient demonstrates compliance with HEP?: Yes Short Term Goals Goal #1: Pt independent and compliant with HEP. Goal to be met by: 06/29/18 Progress towards Goal:: Progressing Goal #2: Muscle tone in left thoracolumbar region decreased to minimal. Goal to be met by: 06/29/18 (increased guarding today) Progress towards Goal:: Progressing Goal #3: Pt to report minimal tenderness at lumbosacral region. Goal to be met by: 06/29/18 Progress towards Goal:: Partially Met Goal #4: . Intermediate Goals Goal #1: Pt knows HEP and to continue ex's to maintain functional level at D/C. Goal to be met by: 07/30/18 Progress towards goal: Progressing Goal #2: Score on Oswestry LBP scale improved to 19% or less impairment. Goal to be met by: 07/30/18 Goal #3: Pt able to stand as needed with only minimal back pain. Goal to be met by: 07/30/18 Progress towards goal: Progressing Goal #4: Pt able to perform household activities with minimal to no back pain. Goal to be met by: 07/30/18 Progress towards goal: Progressing Plan PLAN OF CARE EXPIRES ON:: 07/30/18 ORDER # VISITS AND/OR THROUGH DATE: 07/30/18 PLAN: Con tinue PT to strnegthen the core reduce /eliminate LBP.
--- NOTE | 2018-07-01 15:12 | RS.OPPTDN ---
Subjective Date of Note: 07/01/18 Visit #: 6 Date of Evaluation: 06/15/18 Payer Source: MEDICARE Treatment Diagnosis: Low back pain Current Subjective/complaints:: Reports having a good day today,feels the therapy is helping.Her pain is less than yesterday,has been doing some re- modelng at her home. *Precautions: n/a Pain Assessment - Pain Description Pain Location: low back - Heat/Cryotherapy Treatment: Hot Pack (20 mins. prior to exercises) Interventions - Exercise/Activities/Manual Therapy Exercises/Activities: 30 mins. ,SKTC,DKTC, piriformis stretches,LTR ,supine stretches to the L trunk by placing the LE's to the R of midline.Seated yellow theraband exercises of postural pullbacks at 2 different angles. Total minutes of Exercise: 30 Manual Therapy: NA Total minutes of Manual Therapy: 0 HOME EXERCISE PROGRAM: lower trunk rotation and sidebending to stretch the muscles along the left side - Charges Timed Code Treatment Minutes: 30 Total Treatment Time: 50 Procedures billed for this date of service:: hp,ex 2 Assessment: Patient reports less intensity,and less frequency of back pain with doing ADL's.She reports the pain is localizing to the lumbar region,not as intense in the L mid back. Patient Education: Education of diagnosis, Body/Joint mechanics, Home Exercise Program, Home Safety, Activity Modification, Education of Plan of Care Patient demonstrates compliance with HEP?: Yes Short Term Goals Goal #1: Pt independent and compliant with HEP. Goal to be met by: 06/29/18 Progress towards Goal:: Partially Met Goal #2: Muscle tone in left thoracolumbar region decreased to minimal. Goal to be met by: 06/29/18 (increased guarding today) Progress towards Goal:: Partially Met Goal #3: Pt to report minimal tenderness at lumbosacral region. Goal to be met by: 06/29/18 Progress towards Goal:: Partially Met Goal #4: . Care Home Goals Goal #1: Pt knows HEP and to continue ex's to maintain functional level at D/C. Goal to be met by: 07/30/18 Progress towards goal: Progressing Goal #2: Score on Oswestry LBP scale improved to 19% or less impairment. Goal to be met by: 07/30/18 Goal #3: Pt able to stand as needed with only minimal back pain. Goal to be met by: 07/30/18 Progress towards goal: Progressing Goal #4: Pt able to perform household activities with minimal to no back pain. Goal to be met by: 07/30/18 Progress towards goal: Progressing Plan PLAN OF CARE EXPIRES ON:: 07/30/18 ORDER # VISITS AND/OR THROUGH DATE: 07/30/18 PLAN: Continue PT to eliminate back pain ,return to PLOF,that being pain free with ADL's.
== END 2018-07-04 23:59 ==
DX: M54.5 Low back pain (principal)

== ENCOUNTER 2018-07-19 14:00 | Outpatient (RCR) ==
--- NOTE | 2018-07-05 15:27 | RS.OPPTDN ---
Subjective Date of Note: 07/05/18 Visit #: 7 Date of Evaluation: 06/15/18 Payer Source: MEDICARE Treatment Diagnosis: Low back pain Current Subjective/complaints:: Patient reports increased muscle soreness from household tasks,but having a good day today. *Precautions: n/a Pain Assessment - Pain Description Pain Location: lumbar Pain Description: Dull, Acute Current Pain Intensity: 2/1- Worst Pain Intensity: 3-4 with activity - Heat/Cryotherapy Treatment: Hot Pack (20 mins. after exercises today) Interventions - Exercise/Activities/Manual Therapy Exercises/Activities: 35 mins. core strengthening ,doing using multi gym for postural pullbacks at different angles,then alternating UE/LE flexion while seated on therapy ball.Also did doorway stretches,standing trunk rotation,side bending to the R . Total minutes of Exercise: 35 Manual Therapy: NA Total minutes of Manual Therapy: 0 HOME EXERCISE PROGRAM: lower trunk rotation and sidebending to stretch the muscles along the left side - Charges Timed Code Treatment Minutes: 35 Total Treatment Time: 55 Procedures billed for this date of service:: ex 2,hp Assessment: Patient has improved trunk rotation and sidebending ,with stretch discomfort only,no pain present.She has increased awareness of her standing posture.She is compliant to HEP .We discussed the focus of her remaining sessions will be more on strengthening ,as she has good flexibility. Patient Education: Body/Joint mechanics, Activity Modification, Education of Plan of Care Patient demonstrates compliance with HEP?: Yes Short Term Goals Goal #1: Pt independent and compliant with HEP. Goal to be met by: 06/29/18 Progress towards Goal:: Partially Met Goal #2: Muscle tone in left thoracolumbar region decreased to minimal. Goal to be met by: 06/29/18 Progress towards Goal:: Met Goal #3: Pt to report minimal tenderness at lumbosacral region. Goal to be met by: 06/29/18 Progress towards Goal:: Partially Met Goal #4: . Shelter Goals Goal #1: Pt knows HEP and to continue ex's to maintain functional level at D/C. Goal to be met by: 07/30/18 Progress towards goal: Partially Met Goal #2: Score on Oswestry LBP scale improved to 19% or less impairment. Goal to be met by: 07/30/18 Progress towards goal: Progressing Goal #3: Pt able to stand as needed with only minimal back pain. Goal to be met by: 07/30/18 Progress towards goal: Partially Met Goal #4: Pt able to perform household activities with minimal to no back pain. Goal to be met by: 07/30/18 Progress towards goal: Partially Met Plan PLAN OF CARE EXPIRES ON:: 07/30/18 ORDER # VISITS AND/OR THROUGH DATE: 07/30/18 PLAN: Continue PT to increase strength in the trunk extensors ,reduce/eliminate back pain .
--- NOTE | 2018-07-08 15:14 | RS.OPPTDN ---
Subjective Date of Note: 07/08/18 Visit #: 8 Date of Evaluation: 06/15/18 Payer Source: MEDICARE Treatment Diagnosis: Low back pain Current Subjective/complaints:: Patient reports she feels better overall,but today the L mid back is bothering her again. *Precautions: n/a Pain Assessment - Pain Description Pain Location: mid back Pain Description: Dull, Aching, Chronic Pain Description: muscle soreness Current Pain Intensity: 2 - Heat/Cryotherapy Treatment: Hot Pack (20 mins. prior to exercises) Interventions - Exercise/Activities/Manual Therapy Exercises/Activities: 25 mins. total,including supine SLR's each LE to see if this elicits pain ,then progressed to green theraband exercises in standing for postural pullbacks at different heights,then trunk rotation to L and R with green theraband resistance. Total minutes of Exercise: 25 Manual Therapy: NA Total minutes of Manual Therapy: 0 HOME EXERCISE PROGRAM: lower trunk rotation and sidebending to stretch the muscles along the left side - Charges Timed Code Treatment Minutes: 25 Total Treatment Time: 45 Procedures billed for this date of service:: hp,ex 2 Assessment: Patient has improved core strength,less intense back pain , described now as soreness with activity.She does understand the focus of her exercises to be on strengthening ,because she has good flexibility.We aslo discussed to do all exercises in pain free ROM. Patient Education: Education of diagnosis, Body/Joint mechanics, Home Exercise Program, Home Safety, Activity Modification, Education of Plan of Care Patient demonstrates compliance with HEP?: Yes Short Term Goals Goal #1: Pt independent and compliant with HEP. Goal to be met by: 06/29/18 Progress towards Goal:: Partially Met Goal #2: Muscle tone in left thoracolumbar region decreased to minimal. Goal to be met by: 06/29/18 Progress towards Goal:: Met Goal #3: Pt to report minimal tenderness at lumbosacral region. 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 Goal to be met by: 07/30/18 Progress towards goal: Partially Met Goal #2: Score on Oswestry LBP scale improved to 19% or less impairment. Goal to be met by: 07/30/18 Progress towards goal: Progressing Goal #3: Pt able to stand as needed with only minimal back pain. Goal to be met by: 07/30/18 Progress towards goal: Partially Met Goal #4: Pt able to perform household activities with minimal to no back pain. Goal to be met by: 07/30/18 Progress towards goal: Partially Met Plan PLAN OF CARE EXPIRES ON:: 07/30/18 ORDER # VISITS AND/OR THROUGH DATE: 07/30/18 PLAN: Continue PT to eliminate back pain ,strengthen the core to decrease risk of future injuries.
--- NOTE | 2018-07-19 14:42 | RS.CSNOTE ---
PT Case Note Date of Note: 07/19/18 Title of document: Patient status. Note: Patient enters clinic ,reports she is doing very well .She is independent with ADL's ,and has good understanding of body mechanics and HEP.Patient has met rehab goals and has a 10 % deficit per Oswestry Low Back Assessment. Number of visits approved by Insurance: NA Expiration date of current Insurance Approval:: NA
--- NOTE | 2018-07-20 13:49 | RS.OPPTDC ---
Date of Discharge: 07/08/18 Date of Evaluation: 06/15/18 Treatment Diagnosis: Low back pain Current Complaints/Gains: Ms. Roach states she is pleased with her progress. Reports less intensity and frequency of low back pain. Functional Outcome Measure Oswestry LBP: 5 (10) - G Codes & Severity Modifier G Codes & Modifier: Mob goal CI. Mob D/C CI Source of G Code score: Oswestry LBP Interventions - Exercise/Activities/Manual Therapy Exercises/Activities: nA Manual Therapy: NA HOME EXERCISE PROGRAM: lower trunk rotation and sidebending to stretch the muscles along the left side - Charges Timed Code Treatment Minutes: NA Total Treatment Time: NA Procedures billed for this date of service:: NA Assessment Assessment: Patient has met all goals. Demonstrates no further need for skilled therapy. Reports significantly less LBP and improved function. Short Term Goals Goal #1: Pt independent and compliant with HEP. Goal to be met by: 06/29/18 Progress towards Goal:: Met Goal #2: Muscle tone in left thoracolumbar region decreased to minimal. Goal to be met by: 06/29/18 Progress towards Goal:: Met Goal #3: Pt to report minimal tenderness at lumbosacral region. Goal to be met by: 06/29/18 Progress towards Goal:: Met Goal #4: . Ceo [employer] Goals Goal #1: Pt knows HEP and to continue ex's to maintain functional level at D/C. Goal to be met by: 07/30/18 Progress towards goal: Met Goal #2: Score on Oswestry LBP scale improved to 19% or less impairment. Goal to be met by: 07/30/18 Progress towards goal: Met Goal #3: Pt able to stand as needed with only minimal back pain. Goal to be met by: 07/30/18 Progress towards goal: Met Goal #4: Pt able to perform household activities with minimal to no back pain. Goal to be met by: 07/30/18 Progress towards goal: Partially Met Plan Reason for Discharge:: No Further Skilled Therapy Indicated
== END 2018-08-04 23:59 ==
DX: M54.5 Low back pain (principal)

== ENCOUNTER 2018-07-29 11:55 | Outpatient (CLI) ==
--- NOTE | 2018-07-29 12:20 | DI ---
EXAM: PA and lateral views of the chest HISTORY: Cough. COMPARISON: Chest x-ray 01/07/2016 and 03/23/2008 FINDINGS: The cardiomediastinal silhouette is normal. There is no pneumothorax or pleural effusion. There is no consolidation, nodule or mass. The osseous structures are stable. Surgical clips are n oted in the left chest IMPRESSION: No acute cardiopulmonary process
== END 2018-07-29 11:56 | disposition home or self-care (01) ==
LOC: RAD 11:55
PROVIDERS: ATTEND Internal Medicine
DX: R05 Cough (principal)

== ENCOUNTER 2018-12-30 13:00 | Outpatient (RCR) ==
--- NOTE | 2018-12-20 08:06 | RS.OPPTEV2 ---
Date of Note: 12/17/18 Visit #: 1 Number of visits approved by Insurance: NA Date of Evaluation: 12/17/18 Payer Source: MEDICARE Treatment Diagnosis: Right shoulder pain History of Condition/Mechanism of Injury:: Ms. Roach reports right shoulder pain began approximately May of 2018, without known injury. She received a Cortisone injection around July, which she states helped significantly. She just had another injection last week. It is helping, but not like the first injection did. Prior Level of Function.....Patient was independent with: ADL's, Self Care, Caregiving, Ambulation/Mobility, Community Integration/Access Functional Limitations: Sleep, ADL's, Reaching, Pushing, Pulling, Lifting Current Subjective/complaints:: Ms. Roach reports right shoulder pain. States she has difficulty sleeping because she usually sleeps on the right shoulder, but she is unable to due to pain. She also reports pain with reaching across her body or above shoulder height. She denies tingling or numbness in the right UE. She reports discomfort in the right upper traps and scapula. She attends water aerobics twice a week and reports it causes her no pain. She has tried to rest the arm to see if that decreases her pain, which it has. She is right hand dominant and reports having to do a lot of reaching at home because of her height. Treatment Side (optional): Right *Precautions: n/a Medical History Medical History: Arthritis, Cancer Medical History Comments:: Breast CA 2016 Surgical History: Lumbar Spine, Cholecystectomy, Hysterectomy Surgical History Comments:: lumbar fusion 2008, Smoking Status: Never smoker Diagnostic Testing/Imaging:: MRI verified incomplete rotator cuff tear per office visit note. Hx Home Medications: multivitamin, calcium, clarinex, escitalopram,letrozole, montelukast,fish oil, omeprazole, pentoxifylline,simvastatin,vitamin E, arthrotec Patient's Goals: Her goal is to get relief of right shoulder pain. Pain Assessment - Pain Description Pain Location: right shoulder joint Current Pain Intensity: 2/10 Worst Pain Intensity: 7/10 Functional Outcome Measure UE Functional Index: 68 (68/80=15% impairment) - G Codes & Severity Modifier G Codes & Modifier: NA Source of G Code score: NA Observation - Observation Posture: Forward Head, Rounded Shoulders Handedness: Right - Left Shoulder ROM Comments: Left UE AROM is WFL's throughout. - Right Shoulder ROM Comments: Right shoulder AROM and PROM is WFL's. Reports pain with AROM at shoulder height with flexion and abduction. Reports pain at end range with horizontal adduction. Displays painful arc with abduction. - Left Shoulder Strength Left Shoulder Flexion: 4+ Good + Left Shoulder Extension: 4+ Good + Left Shoulder Abduction: 4+ Good + Left Shoulder Adduction: 4+ Good + Left Shoulder External Rotation: 4+ Good + Left Shoulder Internal Rotation: 4+ Good + - Right Shoulder Strength Right Shoulder Flexion: 4 Good Right Shoulder Extension: 4+ Good + Right Shoulder Abduction: 4- Good- Right Shoulder Adduction: 4+ Good + Right Shoulder External Rotation: 4 Good Right Shoulder Internal Rotation: 4 Good - Special Tests Shoulder Empty Can (Supraspinatus) Test: Positive Right Shoulder Speed's Sign Test: Negative Right Shoulder Drop Arm Test: Negative Right Shoulder Fraire-Sergey Impingement Test: Positive Right Kiln Placer Strength Left Hand Kiln Placer Strength: 40 lbs. Right Hand Kiln Placer Strength: 22 lbs. Dynamometer Testing Position: 2nd Position Palpation Comments:: Patient reports mild tenderness at the insertion of the supraspinatus tendon. Also reports tenderness and demonstrates increased muscle tone along the medial border of the right scapula. Right upper traps also demonstrate moderate increased tone. Sensation - Sensation Right Upper Extremity: Intact/Normal Left Upper Extremity: Intact/Normal - Treatment Modality: Ultrasound Parameters/Method Applied: 1.5 w/cm2 continuous X 10 mins to right GH joint and right upper traps Patient Position: Sitting - Heat/Cryotherapy Treatment: Hot Pack (X 10 mins prior to US to right shoulder) Interventions - Exercise/Activities/Manual Therapy Exercises/Activities: Patient instructed in HEP of pendulum ex, scapular retraction, and AAROM into flexion and abduction in pain-free range. Total minutes of Exercise: X 7 mins Manual Therapy: NA HOME EXERCISE PROGRAM: pendulum ex, scapular retraction, and AAROM into flexion and abduction in pain-free range. - Charges Timed Code Treatment Minutes: 17 mins Total Treatment Time: 49 mins Procedures billed for this date of service:: MAIRA Rendon, EVALUATION COMPLEXITY LEVEL EVALUATION COMPLEXITY LEVEL: HISTORY: Medium (Hx Back sx, Past Breast Ca), EXAM OF BODY SYSTEMS: Low (right shoulder ROM, MS, pain, palpation), CLINICAL PRESENTATION: Low (stable symptoms of RTC involvement), CLINICAL DECISION MAKING : Low Assessment Assessment: Ms. Roach presents to therapy with a diagnosis of right shoulder pain. She reports pain with laying on the right shoulder and with any reaching across her body or to shoulder height. She exhibits symptoms of involvement of Supraspinatus tendon. She presents with good potential to benefit from modalities and exercises to reduce her pain with right shoulder ROM. Patient Education: Education of diagnosis, Body/Joint mechanics, Home Exercise Program, Activity Modification, Education of Plan of Care Rehab Potential: Good Short Term Goals Goal #1: Pt independent and compliant with HEP. Goal to be met by: 12/31/18 Goal #2: Pt to report no tenderness to right shoulder Goal to be met by: 12/31/18 Goal #3: Pt to demo good postural awareness. Goal to be met by: 12/31/18 Goal #4: . Manager Strategic Sourcing Goals Goal #1: Pt knows HEP and to continue ex's to maintain functional level at D/C. Goal to be met by: 01/31/19 Goal #2: Score on UE functional scale improved to 74/80. Goal to be met by: 01/31/19 Goal #3: Pt to perform all ADL's and reaching without right shoulder pain. Goal to be met by: 01/31/19 Goal #4: Pt able to sleep without interruption from right shoulder pain. Goal to be met by: 01/31/19 Plan - Treatment to be Provided Procedures: Therapeutic Exercises, Therapeutic Activity, Manual Therapy, Patient Education Modalities: Ultrasound/Phonophoresis, Cryotherapy, Hot Packs - Treatment Plan Frequency: 2-3 X week Duration: 6 weeks Dates of Manager Strategic Sourcing Goals: 01/31/19 Expiration date of current Insurance Approval:: NA - Treatment Code (1) Shoulder pain Code(s): M25.519 - PAIN IN UNSPECIFIED SHOULDER Qualifiers: Chronicity: acute Laterality: right Qualified Code(s): M25.511 - Pain in right shoulder (2) Incomplete rotator cuff tear or rupture of right shoulder, not specified as traumatic Code(s): M75.111 - INCOMPLETE ROTATR-CUFF TEAR/RUPTR OF R SHOULDER, NOT TRAUMA Comments: M75.111
--- NOTE | 2018-12-20 13:23 | RS.OPPTDN ---
Subjective Date of Note: 12/20/18 Visit #: 2 Number of visits approved by Insurance: NA Date of Evaluation: 12/17/18 Payer Source: MEDICARE Treatment Diagnosis: Right shoulder pain Current Subjective/complaints:: Patient reports soreness right shoulder but heat and gentle exercise helps mobility. *Precautions: n/a Pain Assessment - Pain Description Pain Location: right upper traps to shoulder joint Pain Description: Tightness Current Pain Intensity: mild to mod - Treatment Modality: Ultrasound Parameters/Method Applied: [id number] at 1.5w/cm2 PULSED setting to the right upper traps prior to MT. Patient in sitting. Patient Position: Sitting - Heat/Cryotherapy Treatment: Hot Pack ([id number] to the right shoulder prior to US and EX. Patient in sitting. ) Interventions - Exercise/Activities/Manual Therapy Exercises/Activities: Disscussion of HEP including pendulum ex, scapular retraction, and AAROM in pain-free range. Total minutes of Exercise: 2mins Manual Therapy: [id number] Soft tissue mob and myofascial stretch of the right upper traps. Total minutes of Manual Therapy: 14mins HOME EXERCISE PROGRAM: pendulum ex, scapular retraction, and AAROM into flexion and abduction in pain-free range. - Charges Timed Code Treatment Minutes: 26mins Total Treatment Time: 46mins Procedures billed for this date of service:: HP, US, MT Assessment: Patient reporting a good response to treatment and gentle stretching exercise. Patient Education: Body/Joint mechanics, Home Exercise Program Patient demonstrates compliance with HEP?: Yes Short Term Goals Goal #1: Pt independent and compliant with HEP. Goal to be met by: 12/31/18 Progress towards Goal:: Progressing Goal #2: Pt to report no tenderness to right shoulder Goal to be met by: 12/31/18 Goal #3: Pt to demo good postural awareness. Goal to be met by: 12/31/18 Goal #4: . [place] Manager Goals Goal #1: Pt knows HEP and to continue ex's to maintain functional level at D/C. Goal to be met by: 01/31/19 Goal #2: Score on UE functional scale improved to 74/80. Goal to be met by: 01/31/19 Goal #3: Pt to perform all ADL's and reaching without right shoulder pain. Goal to be met by: 01/31/19 Goal #4: Pt able to sleep without interruption from right shoulder pain. Goal to be met by: 01/31/19 Plan Dates of Retirement Goals: 01/31/19 Expiration date of current Insurance Approval:: 01/31/19 PLAN: Continue modalities and progress exercise to reduce pain and increase functional activity level.
--- NOTE | 2018-12-22 16:03 | RS.OPPTDN ---
Subjective Date of Note: 12/22/18 Visit #: 3 Number of visits approved by Insurance: na Date of Evaluation: 12/17/18 Payer Source: MEDICARE Treatment Diagnosis: Right shoulder pain Current Subjective/complaints:: Patient reports improvement in right upper trap pain and muscle tension since last session. *Precautions: n/a Pain Assessment - Pain Description Pain Location: right upper traps and upper mid scap musculature Pain Description: Tightness, Dull Current Pain Intensity: mild to mod - Treatment Modality: Ultrasound Parameters/Method Applied: [id number] US is PULSED at 1.5w/cm2 to the right upper traps. Patient Position: Sitting - Heat/Cryotherapy Treatment: Hot Pack ([id number] to the right trap prior to US and MT. Patient in sitting. ) Interventions - Exercise/Activities/Manual Therapy Exercises/Activities: PROM of the right shoulder into flex, scap, abd, horz abd , IR, and ER. Continues Codmans, scapular retraction, and AAROM in pain-free range with HEP. Total minutes of Exercise: 4mins Manual Therapy: [id number] Soft tissue mob and myofascial stretch of the right upper traps. Total minutes of Manual Therapy: 12mins HOME EXERCISE PROGRAM: pendulum ex, scapular retraction, and AAROM into flexion and abduction in pain-free range. - Charges Timed Code Treatment Minutes: 26mins Total Treatment Time: 46mins Procedures billed for this date of service:: HP, US, MT Assessment: Patient reporting good response to treatment. Patient Education: Home Exercise Program, Home Safety, Activity Modification Patient demonstrates compliance with HEP?: Yes Short Term Goals Goal #1: Pt independent and compliant with HEP. Goal to be met by: 12/31/18 Progress towards Goal:: Progressing Goal #2: Pt to report no tenderness to right shoulder Goal to be met by: 12/31/18 Progress towards Goal:: Progressing Goal #3: Pt to demo good postural awareness. Goal to be met by: 12/31/18 Goal #4: . 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 Goal to be met by: 01/31/19 Goal #2: Score on UE functional scale improved to 74/80. Goal to be met by: 01/31/19 Goal #3: Pt to perform all ADL's and reaching without right shoulder pain. Goal to be met by: 01/31/19 Goal #4: Pt able to sleep without interruption from right shoulder pain. Goal to be met by: 01/31/19 Plan Dates of Fourdrinier Tender Goals: 01/31/19 Expiration date of current Insurance Approval:: 01/31/19 PLAN: Continue modalities, manual therapy and progressive exercise to reduce pain an increase functional use of the right UE.
--- NOTE | 2018-12-28 12:38 | RS.OPPTDN ---
Subjective Date of Note: 12/28/18 Visit #: 4 Number of visits approved by Insurance: na Date of Evaluation: 12/17/18 Payer Source: MEDICARE Treatment Diagnosis: Right shoulder pain Current Subjective/complaints:: Patient reports the R shoulder pain varies, dependent upon position of the R UE. *Precautions: n/a Pain Assessment - Pain Description Pain Location: R shoulder Pain Description: Dull, Aching Pain Description: occasionally sharp Current Pain Intensity: ranging from 3 to 5 - Heat/Cryotherapy Treatment: Hot Pack (20 mins. prior to US and manual therapy.) Interventions - Exercise/Activities/Manual Therapy Exercises/Activities: Review of HEP in PAIN FREE ROM. Total minutes of Exercise: 0 Manual Therapy: x20 mins Soft tissue mobs. of the right upper traps. Total minutes of Manual Therapy: 20 HOME EXERCISE PROGRAM: pendulum ex, scapular retraction, and AAROM into flexion and abduction in pain-free range. - Charges Timed Code Treatment Minutes: 30 Total Treatment Time: 50 Procedures billed for this date of service:: hp,US,manual therapy Assessment: Patient reports no pain near the RTC tendon site today ,but has trigger point tenderness along the medial border of R scapula.She is compliant to HEP,very motivated and proactive regarding her health,also goes to water exercise twice per week. Patient Education: Education of diagnosis, Body/Joint mechanics, Home Exercise Program, Home Safety, Activity Modification, Education of Plan of Care Patient demonstrates compliance with HEP?: Yes Short Term Goals Goal #1: Pt independent and compliant with HEP. Goal to be met by: 12/31/18 Progress towards Goal:: Progressing Goal #2: Pt to report no tenderness to right shoulder Goal to be met by: 12/31/18 Progress towards Goal:: Progressing Goal #3: Pt to demo good postural awareness. 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 Goal to be met by: 01/31/19 Goal #2: Score on UE functional scale improved to 74/80. Goal to be met by: 01/31/19 Goal #3: Pt to perform all ADL's and reaching without right shoulder pain. Goal to be met by: 04/29/19 Goal #4: Pt able to sleep without interruption from right shoulder pain. Goal to be met by: 01/31/19 Plan Dates of Residential Goals: 01/31/19 Expiration date of current Insurance Approval:: na PLAN: Cont. PT to reduce/eliminate R shoulder pain ,strengthen and stabilize the R shoulder.
--- NOTE | 2018-12-30 15:24 | RS.OPPTDN ---
Subjective Date of Note: 12/30/18 Visit #: 5 Number of visits approved by Insurance: na Date of Evaluation: 12/17/18 Payer Source: MEDICARE Treatment Diagnosis: Right shoulder pain Current Subjective/complaints:: Patient reports right shoulder and upper trap pain is doing much better. States she is doing more activities and some reaching. *Precautions: n/a Pain Assessment - Pain Description Pain Location: right shoulder, upper traps Current Pain Intensity: mild - Treatment Modality: Ultrasound Parameters/Method Applied: [id number] at 1.5w/cm2 to the right upper traps. Patient Position: Sitting - Heat/Cryotherapy Treatment: Hot Pack ([id number] to the right upper traps prior to US and MT. Patient in sitting. ) Interventions - Exercise/Activities/Manual Therapy Exercises/Activities: Review of HEP, no new additions. Manual Therapy: [id number] Soft tissue mob of the right upper traps with light myofascial release. Total minutes of Manual Therapy: 22mina HOME EXERCISE PROGRAM: pendulum ex, scapular retraction, and AAROM into flexion and abduction in pain-free range. - Charges Timed Code Treatment Minutes: 32mins Total Treatment Time: 52mins Procedures billed for this date of service:: HP, US, MT Assessment: Patient reporting good progress and an increase in her ability to perform functional activities. Patient Education: Body/Joint mechanics, Home Exercise Program Patient demonstrates compliance with HEP?: Yes Short Term Goals Goal #1: Pt independent and compliant with HEP. Goal to be met by: 12/31/18 Progress towards Goal:: Progressing Goal #2: Pt to report no tenderness to right shoulder Goal to be met by: 12/31/18 Progress towards Goal:: Progressing Goal #3: Pt to demo good postural awareness. 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 Goal to be met by: 01/31/19 Goal #2: Score on UE functional scale improved to 74/80. Goal to be met by: 01/31/19 Goal #3: Pt to perform all ADL's and reaching without right shoulder pain. Goal to be met by: 01/31/19 Progress towards goal: Progressing Goal #4: Pt able to sleep without interruption from right shoulder pain. Goal to be met by: 01/31/19 Progress towards goal: Progressing Plan Dates of Alf Goals: 01/31/19 Expiration date of current Insurance Approval:: 01/31/19 PLAN: Continue modalities and progress exercise to increase patients functional activity level.
== END 2019-01-02 23:59 ==
PROVIDERS: ATTEND Orthopaedic Surgery
DX: M75.111 Incomplete rotator cuff tear or rupture of right shoulder, not specified as traumatic (principal)

== ENCOUNTER 2019-01-20 13:00 | Outpatient (RCR) ==
--- NOTE | 2019-01-04 11:32 | RS.OPPTDN ---
Subjective Date of Note: 01/04/19 Visit #: 6 Number of visits approved by Insurance: NA Date of Evaluation: 12/17/18 Payer Source: MEDICARE Treatment Diagnosis: Right shoulder pain Current Subjective/complaints:: Patient reports increased tension in the upper traps. States she has been busy and stress by be increasing her discomfort. *Precautions: n/a Pain Assessment - Pain Description Pain Location: right shoulder, bilateral upper traps Pain Description: Tightness Current Pain Intensity: mild to mod - Treatment Modality: Ultrasound Parameters/Method Applied: [id number] 1.0w/cm2 to the right upper traps. Patient Position: Sitting - Heat/Cryotherapy Treatment: Hot Pack ([id number] to right shoulder and upper traps. Patient in sitting. ) Interventions - Exercise/Activities/Manual Therapy Exercises/Activities: Review of HEP, no new additions. Manual Therapy: [id number] Soft tissue mob of the right upper traps with light myofascial release, also massage to left side prior to ROM with slight stretch. HOME EXERCISE PROGRAM: pendulum ex, scapular retraction, and AAROM into flexion and abduction in pain-free range. - Charges Timed Code Treatment Minutes: 30mins Total Treatment Time: 52mins Procedures billed for this date of service:: HP, US, MT Assessment: Patient with increased muscle tension today, but responds to manual therapy. Patient with need to increase stretching. Patient Education: Home Exercise Program Patient demonstrates compliance with HEP?: Yes Short Term Goals Goal #1: Pt independent and compliant with HEP. Goal to be met by: 12/31/18 Progress towards Goal:: Progressing Goal #2: Pt to report no tenderness to right shoulder Goal to be met by: 12/31/18 Progress towards Goal:: Progressing Goal #3: Pt to demo good postural awareness. Goal to be met by: 12/31/18 Progress towards Goal:: Progressing Goal #4: . Care Home Goals Goal #1: Pt knows HEP and to continue ex's to maintain functional level at D/C. Goal to be met by: 01/31/19 Goal #2: Score on UE functional scale improved to 74/80. Goal to be met by: 01/31/19 Goal #3: Pt to perform all ADL's and reaching without right shoulder pain. Goal to be met by: 01/31/19 Progress towards goal: Progressing Goal #4: Pt able to sleep without interruption from right shoulder pain. Goal to be met by: 01/31/19 Progress towards goal: Progressing Plan Dates of Director Drug Safety Goals: 01/31/19 Expiration date of current Insurance Approval:: 01/31/19 PLAN: Continue modalities, manual therapy, and progress exercise to reduce pain and increase functional activity level.
--- NOTE | 2019-01-06 13:40 | RS.OPPTDN ---
Subjective Date of Note: 01/06/19 Visit #: 7 Number of visits approved by Insurance: na Date of Evaluation: 12/17/18 Payer Source: MEDICARE Treatment Diagnosis: Right shoulder pain Current Subjective/complaints:: Patient reports improvement in right upper traps pain. States muscle continue to be tight. *Precautions: n/a Pain Assessment - Pain Description Pain Location: right shoulder and bilateral upper traps Pain Description: Tightness Current Pain Intensity: mild to mod - Treatment Modality: Ultrasound Parameters/Method Applied: [id number] to right superior shoulder and upper traps. Patient Position: Sitting - Heat/Cryotherapy Treatment: Hot Pack ([id number] to bilateral upper traps prior to MT. Patient in sitting. ) Interventions - Exercise/Activities/Manual Therapy Exercises/Activities: Review of HEP, no new additions. Manual Therapy: [id number] Soft tissue mob of the right upper traps with light myofascial release, also massage to left side prior to ROM with slight stretch. Assisted lateral cervical flexion stretching. Total minutes of Manual Therapy: 18mins HOME EXERCISE PROGRAM: pendulum ex, scapular retraction, and AAROM into flexion and abduction in pain-free range. - Objective Findings Observations,measurements,etc.: Pt demos mod increased muscle tone in the bilateral upper traps with right tighter. Pt with latent trigger points. Tone decreased following MT. - Charges Timed Code Treatment Minutes: 28mins Total Treatment Time: 48mins Procedures billed for this date of service:: HP, US, MT Assessment: Patient responding to skilled manual therapy. She will benefit from continued MT and progressive stretching and trigger point release. Short Term Goals Goal #1: Pt independent and compliant with HEP. Goal to be met by: 12/31/18 Progress towards Goal:: Progressing Goal #2: Pt to report no tenderness to right shoulder Goal to be met by: 12/31/18 Progress towards Goal:: Progressing Goal #3: Pt to demo good postural awareness. Goal to be met by: 12/31/18 Progress towards Goal:: Progressing Goal #4: . Residential Goals Goal #1: Pt knows HEP and to continue ex's to maintain functional level at D/C. Goal to be met by: 01/31/19 Goal #2: Score on UE functional scale improved to 74/80. Goal to be met by: 01/31/19 Goal #3: Pt to perform all ADL's and reaching without right shoulder pain. Goal to be met by: 01/31/19 Progress towards goal: Progressing Goal #4: Pt able to sleep without interruption from right shoulder pain. Goal to be met by: 01/31/19 Progress towards goal: Progressing Plan Dates of Clinical Data Assistant Goals: 01/31/19 Expiration date of current Insurance Approval:: 01/31/19 PLAN: Continue modalities, manual therapy, and postural exercises.
--- NOTE | 2019-01-10 15:45 | RS.OPPTDN ---
Subjective Date of Note: 01/10/19 Visit #: 8 Number of visits approved by Insurance: NA Date of Evaluation: 12/17/18 Payer Source: MEDICARE Treatment Diagnosis: Right shoulder pain Current Subjective/complaints:: Patient reports she was able to do more activity today. States shoulder pain and upper trap muscle tension is improving. *Precautions: n/a Pain Assessment - Pain Description Pain Location: Right shoulder, bilateral upper traps. Pain Description: Tightness, Aching Current Pain Intensity: mild to mod - Treatment Modality: Ultrasound Parameters/Method Applied: [id number] at 1.0w/cm2 to the right shoulder, upper traps, and mid scap musculature. Patient Position: Sitting - Heat/Cryotherapy Treatment: Hot Pack ([id number] to the bilateral upper traps prior to US and MT. Patient in sitting. ) Interventions - Exercise/Activities/Manual Therapy Exercises/Activities: Assisted stretching lateral cervical flexion stretching. Total minutes of Exercise: 2mins Manual Therapy: 17mins Soft tissue mob of the right upper traps with light myofascial release, also massage to left side prior to ROM with slight stretch. Total minutes of Manual Therapy: 17mins HOME EXERCISE PROGRAM: pendulum ex, scapular retraction, and AAROM into flexion and abduction in pain-free range. - Objective Findings Observations,measurements,etc.: Patient with increased tone in bilateral traps, but reduced from last session. She demos active shoulder flexion WFL's bilaterally. - Charges Timed Code Treatment Minutes: 29mins Total Treatment Time: 49mins Procedures billed for this date of service:: HP, US, MT Assessment: Patient continues to report improvement in level of pain, muscle tension, and ability to perform light daily activities. Patient Education: Home Exercise Program Patient demonstrates compliance with HEP?: Yes Short Term Goals Goal #1: Pt independent and compliant with HEP. Goal to be met by: 12/31/18 Progress towards Goal:: Progressing Goal #2: Pt to report no tenderness to right shoulder Goal to be met by: 12/31/18 Progress towards Goal:: Progressing Goal #3: Pt to demo good postural awareness. Goal to be met by: 12/31/18 Progress towards Goal:: Progressing Goal #4: . Long-Term Goals Goal #1: Pt knows HEP and to continue ex's to maintain functional level at D/C. Goal to be met by: 01/31/19 Progress towards goal: Progressing Goal #2: Score on UE functional scale improved to 74/80. Goal to be met by: 01/31/19 Goal #3: Pt to perform all ADL's and reaching without right shoulder pain. Goal to be met by: 01/31/19 Progress towards goal: Partially Met Comments: Patient report an increase in ADL's. Goal #4: Pt able to sleep without interruption from right shoulder pain. Goal to be met by: 01/31/19 Progress towards goal: Partially Met Comments: Reports improvement in ability to sleep through the night. Plan Dates of Advertising Specialist Goals: 01/31/19 Expiration date of current Insurance Approval:: 01/31/19 PLAN: Continue modalities, manual therapy, and exercise to reduce pain and increase functional activity level.
--- NOTE | 2019-01-13 13:33 | RS.CXNS ---
Date of scheduled appointment: 01/13/19 Type: Cancel (Patient cancelled appointment today and rescheduled for next week. )
--- NOTE | 2019-01-18 16:06 | RS.OPPTDN ---
Subjective Date of Note: 01/18/19 Visit #: 9 Number of visits approved by Insurance: na Date of Evaluation: 12/17/18 Payer Source: MEDICARE Treatment Diagnosis: Right shoulder pain Current Subjective/complaints:: Patient reports left neck and upper trap pain has resolved. States right shoulder and upper trap pain and muscle spasm seems to have improved. States she is able to perform more activities around her home. *Precautions: n/a Pain Assessment - Pain Description Pain Location: right upper traps Pain Description: Tightness, Dull Current Pain Intensity: mild - Treatment Modality: Ultrasound Parameters/Method Applied: [id number] at 1.5w/cm2 to the right upper traps and mid scap border. Patient Position: Sitting - Heat/Cryotherapy Treatment: Hot Pack ([id number] to the bilateral upper traps prior to US. Patient in sitting. ) Interventions - Exercise/Activities/Manual Therapy Exercises/Activities: Right shoulder AAROM Total minutes of Exercise: 2mins Manual Therapy: 15mins Soft tissue mob of the right upper traps with trigger point work and myofascial release. Total minutes of Manual Therapy: 15mins HOME EXERCISE PROGRAM: pendulum ex, scapular retraction, and AAROM into flexion and abduction in pain-free range. - Charges Timed Code Treatment Minutes: 27mins Total Treatment Time: 47mins Procedures billed for this date of service:: HP, US, MT Assessment: Patient reporting improvment in pain and increased ability to perform daily activities. Patient Education: Home Exercise Program Patient demonstrates compliance with HEP?: Yes Short Term Goals Goal #1: Pt independent and compliant with HEP. Goal to be met by: 12/31/18 Progress towards Goal:: Partially Met Goal #2: Pt to report no tenderness to right shoulder Goal to be met by: 12/31/18 Progress towards Goal:: Partially Met Goal #3: Pt to demo good postural awareness. Goal to be met by: 12/31/18 Progress towards Goal:: Partially Met [place] Block Setter Goals Goal #1: Pt knows HEP and to continue ex's to maintain functional level at D/C. Goal to be met by: 01/31/19 Progress towards goal: Progressing Goal #2: Score on UE functional scale improved to 74/80. Goal to be met by: 01/31/19 Goal #3: Pt to perform all ADL's and reaching without right shoulder pain. Goal to be met by: 01/31/19 Progress towards goal: Partially Met Goal #4: Pt able to sleep without interruption from right shoulder pain. Goal to be met by: 01/31/19 Progress towards goal: Met Plan Dates of Gy[place]um Block Setter Goals: 01/31/19 Expiration date of current Insurance Approval:: 01/31/19 PLAN: Continue with treatment and progress reaching to increase her functional activity level.
--- NOTE | 2019-01-20 16:23 | RS.OPPTDN ---
Subjective Date of Note: 01/20/19 Visit #: 10 Number of visits approved by Insurance: na Date of Evaluation: 12/17/18 Payer Source: MEDICARE Treatment Diagnosis: Right shoulder pain Current Subjective/complaints:: Patient reports she is doing well and feels she is ready for discharge. States she is doing most ADL's with min to no difficulty. She states she will continue basic HEP. *Precautions: n/a Pain Assessment - Pain Description Pain Location: right shoulder, upper traps Pain Description: Tightness Current Pain Intensity: 0 at rest Worst Pain Intensity: mild with some activities - Treatment Modality: Ultrasound Parameters/Method Applied: [id number] at 1.5w/cm2 to the right shoulder and upper traps. Patient Position: Sitting - Heat/Cryotherapy Treatment: Hot Pack ([id number] to the right shoulder and upper traps. Patient in sitting. ) Interventions - Exercise/Activities/Manual Therapy Exercises/Activities: Right shoulder AAROM. Reviewed stretching of lateral cervical flexion, mid scap with UE across midline, and doorway anterior chest stretch. Total minutes of Exercise: 4mins Manual Therapy: 15mins Soft tissue mob of the right upper traps with trigger point work and myofascial release. Total minutes of Manual Therapy: 15mins HOME EXERCISE PROGRAM: pendulum ex, scapular retraction, and AAROM into flexion and abduction in pain-free range. - Objective Findings Observations,measurements,etc.: Patient with improvement on Upper Extremity Functional Scale to 73/80 or 8.75% deficit (was 68/80 or 15% on Eval) - Charges Timed Code Treatment Minutes: 29mins Total Treatment Time: 49mins Procedures billed for this date of service:: HP, US, MT Assessment: Patient has progressed well and met 4 of 7 treatment goals. She is independent with HEP and will continue following discharge. Patient Education: Home Exercise Program, Home Safety, Activity Modification Patient demonstrates compliance with HEP?: Yes Short Term Goals Goal #1: Pt independent and compliant with HEP. Goal to be met by: 12/31/18 Progress towards Goal:: Met Goal #2: Pt to report no tenderness to right shoulder Goal to be met by: 12/31/18 Progress towards Goal:: Partially Met Goal #3: Pt to demo good postural awareness. Goal to be met by: 12/31/18 Progress towards Goal:: Met Goal #4: . Fund Raiser Goals Goal #1: Pt knows HEP and to continue ex's to maintain functional level at D/C. Goal to be met by: 01/31/19 Progress towards goal: Met Goal #2: Score on UE functional scale improved to 74/80. Goal to be met by: 01/31/19 Progress towards goal: Partially Met Comments: 73/80 today Goal #3: Pt to perform all ADL's and reaching without right shoulder pain. Goal to be met by: 01/31/19 Progress towards goal: Partially Met Goal #4: Pt able to sleep without interruption from right shoulder pain. Goal to be met by: 01/31/19 Progress towards goal: Met Plan Dates of Fund Raiser Goals: 01/31/19 Expiration date of current Insurance Approval:: 01/31/19 PLAN: Discharge with HEP.
== END 2019-02-01 23:59 ==
PROVIDERS: ATTEND Orthopaedic Surgery
DX: M75.111 Incomplete rotator cuff tear or rupture of right shoulder, not specified as traumatic (principal); M25.511 Pain in right shoulder